=== PATIENT | female | born 1955 | race Caucasian/White ===

== ENCOUNTER → 2016-10-16 | Outpatient (CLI) | payer BC ==
[2016-10-16 09:34] LABS: Blood Urea Nitrogen 19 mg/dL (7-17); Non-African American GFR(MDRD) >60 (>60 ml/min/1.73 sqM)
== END | disposition home or self-care (01) ==
LOC: LABWHC1 09:13
PROVIDERS: ATTEND Ophthalmology
DX: H47.012 Ischemic optic neuropathy, left eye (principal)
CPT/HCPCS: 36415; 82565; 84520

== ENCOUNTER → 2016-10-19 | Outpatient (CLI) | payer BC ==
--- NOTE | 2016-10-19 09:28 | MR ---
EXAMINATION TYPE: MR brain wo/w con DATE OF EXAM: 10/19/2016 COMPARISON: NONE HISTORY: stroke TECHNIQUE: Multiplanar, multisequence images of the brain and brainstem is performed without and with IV contras t, utilizing 20 mL intravenous MultiHance . FINDINGS: Diffusion weighted images demonstrate no evidence of a recent infarct or other diffusion ab normality. There is no extra-axial fluid collection or significant white matter signal abnormality, scattered hyperintensities in the deep white matter, periventricular region on inversion recovery and T2-weighted sequences are noted which are likely related to age-related chronic small vessel ischemi a.. The ventricular system and cisternal spaces are normal in size and appearance. The brain volume is age appropriate. Midline structures demonstrate normal morphology. The craniocervical junction appears within normal limits. Post contrast images demonstrate no abnormal enhancement. The dural venous sinuses appear pa tent. The visualized sinuses are clear and the globes are intact. IMPRESSION: Nonspecific white matter demyelination, age-related atrophy
== END | disposition home or self-care (01) ==
LOC: RADMRIMAIN 05:59
PROVIDERS: ATTEND Ophthalmology
DX: G31.1 Senile degeneration of brain, not elsewhere classified (principal); H47.012 Ischemic optic neuropathy, left eye
CPT/HCPCS: 70553; A9577

== ENCOUNTER → 2016-12-13 | Outpatient (CLI) | payer BC ==
--- NOTE | 2016-12-13 16:43 | US ---
EXAMINATION TYPE: US thyroid st tissue head/neck DATE OF EXAM: 12/13/2016 COMPARISON: 02/12/2016 CLINICAL HISTORY: 61-year-old female E04.1 Thyroid Nodule. Follow up exam. TECHNIQUE: Multiple sonographic images of the thyroid gland are obtained. FINDINGS: GLAND SIZE: Right Lobe: 3.7 x 1.3 x 2.2 cm Overall Parenchyma: heterogenous Left Lobe: 3.5 x 1.3 x 1.3 cm Overall Parenchyma: heterogeneous Isthmus Thickness: 0.3 cm NODULES RIGHT: # of nodules measured on right: 1 1. 1.9 X 1.1 x 1.5 cm heterogeneous hypoechoic solid nodule at the mid pole with well-defined margin s. This nodule is wider than tall and shows intranodular vascularity. Prior size: 1.8 x 1.1 x 1.6 cm LEFT: # of nodules measured on left: 3 1. 0.8 X 0.5 x 0.6 cm cystic nodule at the mid pole with well-defined margins. This nodule is tall er than wide and shows no intranodular vascularity. Prior size: 1.1 x 0.9 x 1.0 cm 2. 7 x 5 x 6 mm hypoechoic solid nodule at the upper pole with well-defined margins. This nodule is wider than tall and shows intranodular vascularity. Prior size: 0.7 x 0.4 x 0.9 cm 3. 8 x 5 x 6 mm hypoechoic solid nodule at the upper pole with well-defined margins. This nodule is wider than tall and shows intranodular vascularity. Prior size: 0.7 x 0.4 x 0.5 cm ISTHMUS: # of nodules measured in the isthmus: 0 Bilateral neck scanned, no evidence of lymphadenopathy. IMPRESSION: 1. Somewhat small and heterogeneous thyroid gland with multiple nodules. Dominant nodules on the righ t measuring 1.9 x 1.5 cm versus 1.8 x 1.6 cm, previously, not significantly changed. 2. A subcentimeter solid nodule in the left upper pole is minimally larger at 8 x 6 mm versus 7 x 5 m m, previously.
== END | disposition home or self-care (01) ==
LOC: RADUSWWP 14:34
PROVIDERS: ATTEND Otolaryngology
DX: E04.2 Nontoxic multinodular goiter (principal)
CPT/HCPCS: 76536

== ENCOUNTER → 2016-12-13 | Outpatient (CLI) | payer BC ==
--- NOTE | 2016-12-13 16:39 | US ---
EXAMINATION TYPE: US kidneys/renal and bladder DATE OF EXAM: 12/13/2016 COMPARISON: NONE CLINICAL HISTORY: 61-year-old female with urinary tract Infection N39.0. Recurrent UTI's. TECHNIQUE: Multiple sonographic images of the kidneys and bladder are obtained. FINDINGS: Right Kidney: 9.3 x 4.5 x 5.7 cm Left Kidney: 9.3 x 5.1 x 5.0 cm No hydronephrosis on either side. No gross abnormality of the urine distended bladder. Both ureteral jets are visualized. Post Void Res idual Volume: 20 mL. IMPRESSION: 1. No hydronephrosis. 2. Small amount of residual bladder volume after voiding (20 mL) falls within an acceptable range (<5 0 mL).
== END | disposition home or self-care (01) ==
LOC: RADUSWWP 14:31
PROVIDERS: ATTEND Internal Medicine
DX: N39.0 Urinary tract infection, site not specified (principal)
CPT/HCPCS: 76770